=== PATIENT | female | born 1975 | race Caucasian/White ===

== ENCOUNTER 2019-12-26 08:18 | Day surgery (SDC) | payer OTHER ==
[~2019-12-26 08:18] MED LIST: Lactated Ringers 1,000 ML IV SCH; Lidocaine 1%/Sod Bicarbonate in NS 8.4% 1 ML Syringe IDERM PRN; Midazolam 1 MG/ML 2 ML SDV ONE; Propofol 200 MG/20 ML SDV ONE; Sodium Chloride 0.9% 10 ML Syringe FLUSH PRN; fentaNYL 100 MCG/2 ML SDV ONE
--- NOTE | 2019-12-26 09:09 | PCM.PREANE ---
Preanesthetic Assessment - Anesthesia/Transfusion/Family Hx Anesthesia History: Prior Anesthesia Reaction Type of Anesthesia Reaction: Other (see below) (apnea episode during EGD) - Review of Systems General: No Symptoms Pulmonary: No Symptoms Cardiovascular: No Symptoms Gastrointestinal: No Symptoms Neurological: No Symptoms Other: Reports: None - Physical Assessment NPO Status Date: 12/26/19 NPO Status Time: 22:00 ASA Class: 2 Mental Status: Alert & Oriented x3 Airway Class: Mallampati = 2 Dentition: Reports: Normal Dentition Thyro-Mental Finger Breadths: 3 Mouth Opening Finger Breadths: 3 ROM/Head Extension: Full Lungs: Clear to Auscultation, Normal Respiratory Effort Cardiovascular: Regular Rate, Regular Rhythm - Allergies Allergies/Adverse Reactions: Allergies Allergy/AdvReac Type Severity Reaction Status Date / Time No Known Allergies Allergy Verified 12/23/19 13:33 - Acknowledgements Anesthesia Type Planned: MAC Pt an Appropriate Candidate for the Planned Anesthesia: Yes Alternatives and Risks of Anesthesia Discussed w Pt/Guardian: Yes Pt/Guardian Understands and Agrees with Anesthesia Plan: Yes PreAnesthesia Questionnaire HEENT History: Reports: Impaired Vision, Sinusitis Cardiovascular History: Reports: High Cholesterol Gastrointestinal History: Reports: GERD 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: Reports: Endometriosis Neurological History: Reports: Migraines Psychiatric History: Reports: Anxiety Endocrine/Metabolic History: Reports: Obesity/BMI 30+ - Past Surgical History HEENT Surgical History: Reports: None Cardiovascular Surgical History: Reports: None Respiratory Surgical History: Reports: None GI Surgical History: Reports: Appendectomy, Cholecystectomy, Colonoscopy, EGD Female Surgical History: Reports: Hysterectomy Male Surgical History: Reports: None Endocrine Surgical History: Reports: None Neurological Surgical History: Reports: None Musculoskeletal Surgical History: Reports: Other (See Below) Other Musculoskeletal Surgeries/Procedures:: right ankle fracture with surgery Oncologic Surgical History: Reports: None Dermatological Surgical History: Reports: None - SUBSTANCE USE Smoking Status *Q: Current Every Day Smoker Recreational Drug Use History: No - HOME MEDS Home Medications: Home Meds Citalopram Hydrobromide [Celexa] 20 mg PO DAILY 12/23/19 [History] Pantoprazole Sodium [Protonix] 40 mg PO QAM 12/23/19 [History] Triamcinolone Acetonide [Nasacort] 1 dose NASBOTH DAILY 12/23/19 [History] atorvaSTATin Calcium [Lipitor] 20 mg PO DAILY 12/23/19 [History] - CURRENT (IN HOUSE) MEDS Current Meds: Current Medications Lactated Ringer's (Ringers, Lactated) 1,000 mls @ 125 mls/hr IV ASDIRECTED NICKY Stop: 12/26/19 23:00 Lidocaine/Sodium Bicarbonate (Buffered Lidocaine 1% In Ns 8.4%) 0.25 ml IDERM ONETIME PRN PRN Reason: Prior to IV Start Stop: 12/26/19 18:00 Sodium Chloride (Saline Flush) 10 ml FLUSH ASDIRECTED PRN PRN Reason: Keep Vein Open Stop: 12/26/19 18:00 Discontinued Medications Fentanyl (Sublimaze) Confirm Administered Dose 100 mcg .ROUTE .STK-MED ONE Stop: 12/26/19 07:15 Midazolam HCl (Versed 1 Mg/Ml) Confirm Administered Dose 2 mg .ROUTE .STK-MED ONE Stop: 12/26/19 07:15 Propofol (Diprivan 20 Ml) Confirm Administered Dose 400 mg .ROUTE .STK-MED ONE Stop: 12/26/19 07:15
[2019-12-26] MEDS ORDERED: Midazolam 1 MG/ML 2 ML SDV ONE (09:18)
[2019-12-26] MEDS ORDERED: Propofol 200 MG/20 ML SDV ONE (10:25)
[2019-12-26] MEDS ORDERED: Ondansetron 4 MG/2 ML SDV IVPUSH PRN (10:54)
--- NOTE | 2019-12-26 10:54 | PCM48HPAN ---
Post Anesthesia Note - EVALUATION WITHIN 48HRS OF ANESTHETIC Vital Signs in Normal Range: Yes Patient Participated in Evaluation: Yes Respiratory Function Stable: Yes Airway Patent: Yes Cardiovascular Function Stable: Yes Hydration Status Stable: Yes Pain Control Satisfactory: Yes Nausea and Vomiting Control Satisfactory: Yes Mental Status Recovered: Yes Vital Signs: Last Vital Signs Temp 36.2 C 12/26/19 08:35 Pulse 67 12/26/19 08:35 Resp 16 12/26/19 08:35 BP 108/46 L 12/26/19 08:35 Pulse Ox 97 12/26/19 08:35
--- NOTE | 2019-12-26 12:10 | OR ---
DATE OF OPERATION: 12/26/2019 SURGEON: Heladio Street MD PREOPERATIVE DIAGNOSIS: 1. Reflux symptoms. 2. Rectal pain. POSTOPERATIVE DIAGNOSIS: 1. Sphincter of Oddi mucosal abnormality. 2. Gastritis. 3. Medium-sized hiatal hernia. 4. Distal esophagitis. 5. Grade 3 internal hemorrhoids. OPERATION PERFORMED: 1. Esophagogastroduodenoscopy with biopsies. 2. Colonoscopy. ANESTHESIA: Monitored anesthesia care. COMPLICATIONS: None. INDICATIONS AND CONSENT: The patient is a 44-year-old female with history of GERD over the last 10 years. The patient is on the PPIs, but these are not completely relieving her symptoms. She also has developed some rectal pain in the past several months. The patient presented to the clinic and was evaluated and EGD and colonoscopy were recommended. Risks, benefits, and alternatives were discussed in detail. All questions were answered. Informed consent was obtained. DESCRIPTION OF PROCEDURE: The patient was taken to the procedure room, placed in the left lateral decubitus position. Following induction of monitored anesthesia care, we began the procedure with an EGD. Formal time-out was performed. Then, an EGD was advanced through the mouth into the esophagus, and while advancing through the esophagus, we examined the esophagus. The upper esophagus was normal. Distal esophagus had some inflammation, LA grade 1. The GE junction was at 35 and Z-line was irregular. The scope was advanced into the stomach. There was diffuse gastritis. Scope was advanced into the duodenal bulb which was normal. The first and second portion of duodenum was normal. However, there was a small mucosal proliferation at the sphincter of Oddi. This appeared benign, but it was biopsied for pathologic analysis. Then, the scope was withdrawn back into the stomach. Samples were taken at the antrum for H. pylori and pathology with cold forceps. Then, on retroflexion, there was medium -sized hiatal hernia without Felipe ulcers. Then, at the GE junction, the mucosa appeared normal, however, the Z-line was irregular and so samples were taken here for pathologic analysis. Distal esophagus had some evidence of inflammation, therefore some samples were taken here for analysis as well. Then, the stomach was suctioned out of any air and then the scope withdrawn slowly into the esophagus again. At about 28 cm from the incisors, there was evidence of a large-mouthed esophageal diverticulum. Fluid appeared to be going in and out of this diverticulum. There was no evidence of food remnants here. The scope was slowly withdrawn further and taken out of the mouth. Next, we proceeded with colonoscopy. Perianal exam was significant for hemorrhoids, which appeared to be grade 3. There was no stigmata of bleeding. Digital rectal examination had no other abnormalities. Scope was advanced all the way to the cecum, to the terminal ileum. The terminal ileum was photographed. The ileocecal valve and appendiceal orifice were photographed. Then, the scope was withdrawn slowly examining the entirety of colonic mucosa. There were no polyps or any other lesions. In the rectum, retroflexion was performed, confirming the hemorrhoids. Then, the scope was withdrawn after suctioning the air from the rectum and this marked the end of the procedure. At the end of the procedure, the patient was awoken from monitored anesthesia care and taken to the PACU for recovery. There were no immediate complications. The patient will return to office in 2 weeks for discussion of the pathology and further plans. ESTIMATED BLOOD LOSS: MMODAL /[id number] OPHELIA
== END 2019-12-26 11:40 | disposition home or self-care (01) ==
LOC: JD.SDS 08:18
PROVIDERS: ATTEND Surgery
DX: K83.8 Other specified diseases of biliary tract (principal); K64.2 Third degree hemorrhoids; K20.9 Esophagitis, unspecified; K29.70 Gastritis, unspecified, without bleeding; K44.9 Diaphragmatic hernia without obstruction or gangrene; E78.2 Mixed hyperlipidemia; E78.00 Pure hypercholesterolemia, unspecified; F41.9 Anxiety disorder, unspecified; F17.210 Nicotine dependence, cigarettes, uncomplicated; Z90.49 Acquired absence of other specified parts of digestive tract
CPT/HCPCS: 43239; 45378; J2250; J2704; J3010; J7120; 00813